=== PATIENT | male | born 1945 ===

== ENCOUNTER → 2024-03-22 11:42 | Outpatient (REF) | payer MEDICARE, OTHER, SELFPAY | LOC: RAD 11:42 | PROVIDERS: ATTENDING PHYSICIAN Urology; FAMILY PHYSICIAN Nurse Practitioner Family | DX: C67.9 Malignant neoplasm of bladder, unspecified (principal) | CPT/HCPCS: 74176 ==

== ENCOUNTER 2024-07-22 06:07 | Inpatient (IN) | payer MEDICARE, OTHER, SELFPAY ==
[2024-07-21 20:54] VITALS: BP 138/90
[2024-07-21 21:23] LABS: % Basophils 0.3 % (0-2); % Immature Granulocytes 0.5 % (0-0.5); % Lymphocytes 6.7 % (20.5-51.1); % Monocytes 3.9 % (1.7-9.3); % Neutrophils 88.6 % (42.2-75.2); Absolute Basophils 0.1 10^3/uL (0-0.2); Absolute Immature Granulocytes 0.1 10^3/uL (0-0.05); Absolute Monocytes 0.6 10^3/uL (0.1-0.6); Absolute Neutrophils 13.8 10^3/uL (1.4-6.5); Hematocrit 37.4 % (39.0-52.0); Hemoglobin 12.4 g/dL (13.0-18.0); Mean Corp Hgb Conc. 33.2 g/dL (33.0-37.0); Mean Corpuscular Hgb 25.3 pg (27.0-31.0); Mean Corpuscular Volume 76.3 fL (80.0-94.0); Nucleated Red Blood Cells % 0 % (-); Platelet Count 210 10^3/uL (130-400); Red Cell Dist. Width 14.8 % (11.5-14.5); White Blood Cell Count 15.5 10^3/uL (4.8-10.8)
[2024-07-21 21:38] LABS: ALT (SGPT) 19 U/L (0-50); AST (SGOT) 29 U/L (17-59); Albumin 4.6 g/dl (3.5-5.0); Alkaline Phosphatase 83 U/L (38-126); Blood Urea Nitrogen 42 mg/dl (9-20); Calcium 9.8 mg/dl (8.4-10.2); Carbon Dioxide 19 mmol/L (22-30); Chloride 105 mmol/L (98-107); Glucose 286 mg/dl (70-99); Lipase 116 U/L (23-300); Potassium 5.4 mmol/L (3.5-5.1); Sodium 139 mmol/L (135-145); Total Bilirubin 0.6 mg/dl (0.2-1.3); Total Protein 7.1 g/dl (6.3-8.2); eGFR 26.78
[2024-07-21 22:43] VITALS: BP 185/88
[2024-07-22] VITALS (8 sets, daily range): BP systolic 118–180; BP diastolic 43–83; PULSE 68–76; O2SAT 96–98; BMI 26.8
[2024-07-22 01:22] LABS: Urine Albumin 1+ (Neg - Trace); Urine Bilirubin Negative (Negative); Urine Character Slightly Cloudy (Clear); Urine Color Yellow; Urine Glucose 3+ (Negative); Urine Ketone Negative (Negative); Urine Leukocyte 2+ (Negative); Urine Nitrite Negative (Negative); Urine Occult Blood 4+ (Negative); Urine Specific Gravity 1.025 (<1.030); Urine Urobilinogen Negative (Neg - 1+)
[2024-07-22 01:32] LABS: Urine Bacteria Moderate (Negative); Urine Red Blood Cell >100 /HPF (0-2); Urine Uric Acid Crystals Seen; Urine White Cell 50-60 /HPF (0-5)
--- NOTE | 2024-07-22 01:57 | ED.GENMED ---
History of Present Illness
General
Chief Complaint: Flank Pain
Source: patient
Exam Limitations: none
Time Seen by Provider: 07/22/24 01:40
Nursing documentation reviewed up to this point in time: agreed with
History of Present Illness
History of Present Illness:
Patient is a 78-year-old male with past medical history of urethral stone requiring stent lithotripsy(01/2023), dementia bladder cancer pneumonia hypertension hyper lipidemia, IDDM presents to the ER complaining right flank pain. Daughter at bedside
patient patient does have a history of dementia he is presently being treated for prostate cancer by Dr. Cabral he does receive Lupron IM every 6 months. He started with right flank pain several days ago and has not been eating. She also reports
his blood sugar has been elevated and he has been urinating more frequently.
Past History
Past History
ED Past Medical History: Cancer (Bladder and prostate), HTN, Hypercholesterolemia, IDDM, Renal failure (Renal insufficiency, kidney stones) and Other (Bladder cancer, prostate cancer, renal insufficiency, congenital nystagmus, mild dementia,
neuropathy, ambulates with a cane)
ED Past Surgical History: Tonsilectomy and Urological
Social History
Tobacco: Non-smoker
Alcohol: None
Drug: None
Personal:
Living: with family
Employment: Retired
Family History
Family History: Other (Noncontributory)
Review of Systems
Review of Systems
Allergies reviewed?: Yes
All Other Systems: ROS reviewed and negative except as documented in HPI and ROS
Constitutional: Reports no symptoms; Denies fever, fatigue or chills
Respiratory: Reports no symptoms
Cardiac: Reports no symptoms
ABD/GI: Reports no symptoms
: Reports frequency and flank pain
Musculoskeletal: Reports back pain (right flank pain )
Skin: Reports no symptoms
Neurological: Reports no symptoms
Psychiatric: Reports no symptoms
Phy Exam
General Physical Exam
General Presentation: no apparent distress
General age: appears stated age
General Skin: warm and dry
General Habitus: normal
General Mental: alert
General Hydration: appears well hydrated
Cardiovascular Exam
Cardiovascular Exam: regular rate/rhythm, no murmur and normal peripheral pulses
Pulmonary Exam
Pulmonary Exam: lungs clear and no respiratory distress
Gastrointestinal Exam
Gastrointestinal Exam: non tender and soft
Neurological Exam
Neurological Exam: alert
Musculoskeletal Exam
Musculoskeletal Exam: full ROM
Skin Exam
Skin Exam: normal color and warm/dry
Psychiatric Exam
Psychiatric Exam: normal mood/affect
Course
Orders/Labs/Results
Orders:
Orders
07/21/24 20:58
Urinalysis Urgent
Date Specimen was Collected: 07/21/24
Time Specimen was Collected: 20:59
07/21/24 21:08
Complete Blood Count/With Diff Urgent
Comprehensive Metabolic Panel Urgent
Lipase Urgent
07/22/24 01:10
Urine Microscopic Urgent
Date Specimen was Collected: 07/21/24
Time Specimen was Collected: 20:59
07/22/24 02:08
CT Abd/pel Without Iv Or Oral Urgent
Comment:
Reason For Exam: right flank pain
0.9% Sodium Chloride 1000 ml [Nss] 1,000 ml IV BOLUS
CefTRIAXone [Rocephin] 1,000 mg IV NOW STA
Morphine Sulfate 2 mg IV NOW STA
07/22/24 02:27
Ondansetron Injectable [Zofran] 4 mg .ROUTE .STK-MED ONE
07/22/24 02:30
Ondansetron Injectable [Zofran] 4 mg IV NOW STA
Abnormal Lab Results
07/21/24 07/22/24
21:08 01:10
WBC 15.5 H 10^3/uL
(4.8-10.8)
Hgb 12.4 L g/dL
(13.0-18.0)
Hct 37.4 L %
(39.0-52.0)
MCV 76.3 L fL
(80.0-94.0)
MCH 25.3 L pg
(27.0-31.0)
RDW 14.8 H %
(11.5-14.5)
Abs Immat Gran (auto) 0.1 H 10^3/uL
(0-0.05)
Absolute Neuts (auto) 13.8 H 10^3/uL
(1.4-6.5)
Absolute Lymphs (auto) 1.0 L 10^3/uL
(1.2-3.4)
Neutrophils % 88.6 H %
(42.2-75.2)
Lymphocytes % 6.7 L %
(20.5-51.1)
Potassium 5.4 H mmol/L
(3.5-5.1)
Carbon Dioxide 19 L mmol/L
(22-30)
BUN 42 H mg/dl
(9-20)
Creatinine 2.4 H mg/dL
(0.7-1.3)
Glucose 286 H mg/dl
(70-99)
Urine Occult Blood 4+ A
(Negative)
Ur Leukocyte Esterase 2+ A
(Negative)
Urine RBC >100 A /HPF
(0-2)
Urine WBC 50-60 A /HPF
(0-5)
Urine Bacteria Moderate A
(Negative)
Urine Glucose 3+ A
(Negative)
Urine Albumin 1+ A
(Neg - Trace)
07/21/24 21:08
07/21/24 21:08
Vital Signs
Initial and Last Documented VS:
Initial Vital Signs
Temp Pulse Resp BP Pulse Ox
98.2 F 80 22 138/90 98
07/21/24 20:54 07/21/24 20:54 07/21/24 20:54 07/21/24 20:54 07/21/24 20:54
Last Documented Vital Signs
Temp Pulse Resp BP Pulse Ox
98.2 F 82 16 172/77 96
07/21/24 20:54 07/22/24 03:00 07/22/24 03:00 07/22/24 03:00 07/22/24 03:00
Manager Pricing consulted with Physician
Manager Pricing consulted with physician?: Yes
Name of Physician Consulted: Cathi
MDM/Problems Addressed
Differential Diagnosis Includes:
Not limited to pyelonephritis UTI renal colic
MDM/Problems Addressed:
Patient is a 78-year-old male with history of chronic kidney disease prostate cancer renal stones in the past with stent presents today with right flank pain. Patient denies any fever chills his white count is minimally elevated his urine does
appear infected and he does have 5 mm stone within the distal right ureter with mild hydronephrosis. Patient does have chronic kidney disease and is followed by Dr. Zuluaga and DR Cabral for prostate cancer.
With infection and stone case reviewed with ED physician IV antibiotics ordered will admit. Admitting hospitalist and urology made aware via Slater text
Chronic conditions affecting care:
iddm hx of renal stones , hx of CKD
*Radiology
Radiology exam reviewed: radiology read reviewed
*Pulse Oximetry
Patient hypoxic: no
*Critical Care Note
Total Time (30-74mins, 75-104mins- exclusive of procedures): Not Applicable
Patient Management
Discussion with other providers: [employer] (urology made aware via tiger text )
ED Attending Note
-
Portions of this chart may have been created with voice recognition software.� Occasional wrong word or��sound alike� substitutions may have occurred due to the inherent limitations of voice recognition software.
Discharge Plan
Departure
Patient Disposition: Admit
Date of Disposition: 07/22/24
Time of Disposition: 03:44
Admit to doctor: hospitalist
Presentation/result/management discussed w/ accepting MD/DO: Hospitalist
Patient with high blood pressure during this ER visit?: Yes
Condition: Fair
Covid-19: Not Applicable
Discharge Problem:
Kidney stones, Acute UTI
Prescriptions:
No Action
donepezil 10 MG tablet
10 mg PO DAILY@1200
simvastatin 40 MG tablet
40 mg PO DAILY@1200
Levemir FlexTouch U100 Insulin 300 UNIT/3 ML insulin pen
40 unit SC DAILY@1200
sertraline 100 MG tablet
150 mg PO DAILY@1200
insulin aspart U-100 [Novolog FlexPen U-100 Insulin] 300 UNITS/3 ML insulin pen
0 - 7 units SC DAILY@1200
metformin 500 mg tablet
1,000 mg PO BID
amlodipine 5 mg tablet
2.5 mg PO DAILY@1200
Lupron Depot (6 Month)
45 mg IM Q6M
potassium citrate
2 tab PO DAILY
Referrals:
Dillan Santillan I., [Family Provider] -
Interventions
Interventions:
*Risk Screen - Suicide Last Done: 07/21/24 20:54
*General Assessment Last Done: 07/22/24 01:59
*Neglect/Abuse Screening Last Done: 07/21/24 20:54
*ED COVID-19 Vaccine History Last Done: 07/22/24 01:59
XF-Xoqagi-Vzntufvdew Assessment Last Done: 07/22/24 01:59
ED-Male Genitourinary Assessment Last Done: 07/22/24 01:59
Discharge Date and Time
Print Language: YAKUT
[2024-07-22] MEDS: ROCEPHIN 1000 MG IV ×2 (02:22→22:09)
[2024-07-22] MEDS: MORPHINE SULFATE 2 MG IV (02:23)
[2024-07-22] MEDS: NSS 1000 IV ×3 (02:23→18:15)
[2024-07-22] MEDS: ZOFRAN 4 MG IV (02:30)
--- NOTE | 2024-07-22 06:03 | HPS.HSE ---
Family Physician
-
Family Physician: Dillan Santillan
Chief Complaint
-
R Flank Pain
History of Present Illness
Patient is a 78y M with PMH significant for dementia, kidney stones and bladder cancer / prostate cancer who presents to ED complaining of R flank pain x several days. Family reported that patient began to complain of R flank pain about 2-3 days
ago. He has had poor appetite and family notes his sugars have been running high and he has had frequent urination.
No fevers / chills. No N/V/D. No other current complaints or concerns.
Patient is followed by Dr. Cabral for bladder cancer and prostate cancer.
Medical History
Past Medical History
Past Medical History: Reports Other
Additional Past Medical History:
Hypertension
DM-II
CKD III
Senile Dementia
Bladder Cancer
Prostate Cancer
Nephrolithiasis
Past Surgical History: Reports Other
Additional Past Surgical History:
Prostatectomy
Ureteral Stent Placement
TURBT
Social History
Tobacco: Non-smoker
Alcohol: None
Drug: None
Living: With Family
Family History
Family History: Not pertinent
Allergies / Home Medications
Allergies reflects when Allergies were last updated in [facility].
Home Medications with original date entered in [facility]
Allergy/Medication List:
Allergies
Allergy/AdvReac Type Severity Reaction Status Date / Time
No Known Allergies Allergy Verified 07/21/24 20:58
Home Medications
donepezil 10 mg tablet 10 mg PO DAILY@1200 memory 05/02/22
insulin aspart U-100 100 unit/mL (3 mL) subcutaneous pen (Novolog FlexPen U-100 Insulin aspart) 0 - 7 units SC DAILY@1200 Diabetes 05/02/22
insulin detemir U-100 100 unit/mL (3 mL) subcutaneous pen (Levemir FlexTouch U-100 Insulin) 40 unit SC DAILY@1200 Diabetes 05/02/22
sertraline 100 mg tablet 150 mg PO DAILY@1200 Depression 05/02/22
simvastatin 40 mg tablet 40 mg PO DAILY@1200 High cholesterol 05/02/22
amlodipine 5 mg tablet 2.5 mg PO DAILY@1200 Blood pressure 12/30/22
metformin 500 mg tablet 1,000 mg PO BID Diabetes 12/30/22
Lupron Depot (6 Month) 45 mg IM Q6M 05/25/23
potassium citrate 2 tab PO DAILY 05/25/23
Review of Systems
-
History Source: Patient
A 12 point ROS was completed and negative except as noted: Yes
Constitutional: Denies Fever or Chills
Respiratory: Denies Cough or Trouble Breathing
Cardiac: Denies Chest Pain or Palpitations
Abdomen/GI: Reports Anorexia; Denies Abdominal Pain, Nausea, Vomiting or Diarrhea
: Reports Frequency and Flank Pain; Denies Dysuria, Urgency or Bleeding
Musculoskeletal: Denies Edema
Neurological: Denies Dizzy or Headache
Psych: Reports Dementia
Physical Exam
Vital Signs
Vital Signs
Temp Pulse Resp BP Pulse Ox
98.2 F 82 16 172/77 96
07/21/24 20:54 07/22/24 03:00 07/22/24 03:00 07/22/24 03:00 07/22/24 03:00
Physical Exam
General: Other (78y M in no acute distress. Pleasantly confused.)
HEENT: Moist mucous membranes and PERRLA
Respiratory: Clear; No Wheezes, Rales or Rhonchi
Cardiac: S1/S2 and Regular Rhythm; No Murmur
GI: Soft, Non Distended, Normal Bowel Sounds and Other (Mild RUQ tenderness.)
Genito-urinary: Other (Pos R CVAT.)
Musculoskeletal: No Clubbing, No Cyanosis and No Edema
Neuro: Awake and Alert
Psych: Apparent Dementia
Laboratory Results
-
07/21/24 21:08
07/21/24 21:08
Laboratory Results
Total Bilirubin 0.6 mg/dl (0.2-1.3) 07/21/24 21:08
AST 29 U/L (17-59) 07/21/24 21:08
ALT 19 U/L (0-50) 07/21/24 21:08
Alkaline Phosphatase 83 U/L (38-126) 07/21/24 21:08
Lipase 116 U/L (23-300) 07/21/24 21:08
Impression/Plan
-
A/P: Patient is a 78y M with PMH significant for HTN, DM-II and dementia who presents to ED complaining of several days of R flank pain.
Right Ureterolithiasis
DEJAH on CKD III secondary to the above
- Admit for further evaluation and treatment.
- Patient with R flank pain and CT showing 5mm distal R ureteral stone.
- IVFs, pain control, tamsulosin.
- Urology consulted for possible cysto / stent.
- Empiric ceftriaxone for now.
- Follow for clinical improvement.
- SCr = 2.4 compared to baseline of 1.7.
- Follow for return to baseline renal function with IVFs / removal of ureteral stone.
Benign Hypertension
- Stable. Continue outpatient med regimen with holding parameters.
DM-II
- Stable. Continue basal insulin at 1/2 dose while NPO.
- Follow glucose and cover with SSI as needed.
- Update A1C.
Senile Dementia
- Stable. Continue Aricept.
History of Bladder Cancer
History of Prostate Cancer
- Followed by Dr. Cabral.
- Currently on Lupron q 6 months.
DVT Prophylaxis: SCDs
Code Status: Full
[2024-07-22 08:06] LABS: Glucose - Point of Care 248 mg/dl (70-99)
--- NOTE | 2024-07-22 08:52 | CONS.URO ---
Medical History
History of Present Illness
78 yo male admitted to hospitalists: 'R flank pain about 2-3 days ago. He has had poor appetite and family notes his sugars have been running high and he has had frequent urination.
No fevers / chills. No N/V/D.'
Asked to see patient for urinary retention.
02/24/[address] Cabral:
�������Had previously seen Dr. Chicas for bladder cancer, treated last several years ago
�������He was treated with likely chemoradiation at some point for bladder cancer, but patient and family are unsure about what his treatment course or stage was
�������Unsure about follow up cystoscopy appointments but they think he had Q3 month appts
�������At one point stopped going to his appointments because of dementia
�������-
�������On follow up with Dr. Chicas he was found to have elevated PSA and prostate nodule 10/2020
�������MRI 11/10/20 subsequently showed 2 PIRADS 5 lesions concerning for prostate cancer with extracapsular extension,
�������
�������He had a prostate biopsy revealing cancer
������
�������---
�������04/13/21
�������Negative surveillance cystoscopy
�������6 month lupron given
������
�������---
�������04/20/22
������
�������Testosterone is therapeutic low <10 and PSA 0.13
������
�������---
�������05/12/22
�������Uncomplicated ureteroscopy and laser lithotripsy
�������
�������--
�������01/2023
�������New symptomatic 7mm R ureteral stone found on CT, ureteroscopy completed without complication and stent removed
�������---
�������05/03/23
�������Started on Urocit K for uric acid stones
�������PSA <0.1
�������Lupron stopped to initiate intermittent ADT
�������---
�������10/2023
�������PSA <0.1 07/2023
�������No issues since last visit
�������---
�������03/13/24
�������No new issues or sx
�������labs and CT not completed.
Past Medical History
Past Medical History: Other (Hypertension DM-II CKD III Senile Dementia Bladder Cancer Prostate Cancer Nephrolithiasis)
Past Surgical History: Other (Prostatectomy, Ureteroscopies, TURBTs)
Allergies/Home Medications
Allergies
Allergy/AdvReac Type Severity Reaction Status Date / Time
No Known Allergies Allergy Verified 07/21/24 20:58
Home Medications
�Medication �Instructions �Recorded �Confirmed �Type
donepezil 10 mg tablet 10 mg PO DAILY@1200 memory 05/02/22 07/22/24 History
insulin aspart U-100 100 unit/mL 0 - 7 units SC DAILY@1200 Diabetes 05/02/22 07/22/24 History
(3 mL) subcutaneous pen (Novolog
FlexPen U-100 Insulin aspart)
insulin detemir U-100 100 unit/mL 40 unit SC DAILY@1200 Diabetes 05/02/22 07/22/24 History
(3 mL) subcutaneous pen (Levemir
FlexTouch U-100 Insulin)
sertraline 100 mg tablet 150 mg PO DAILY@1200 Depression 05/02/22 07/22/24 History
simvastatin 40 mg tablet 40 mg PO DAILY@1200 High 05/02/22 07/22/24 History
cholesterol
amlodipine 5 mg tablet 2.5 mg PO DAILY@1200 Blood pressure 12/30/22 07/22/24 History
metformin 500 mg tablet 1,000 mg PO BID Diabetes 12/30/22 07/22/24 History
Lupron Depot (6 Month) 45 mg IM Q6M 05/25/23 07/22/24 History
potassium citrate 2 tab PO DAILY 05/25/23 07/22/24 History
Physical Exam
Vital Signs
Vital Signs
Temp Pulse Resp BP Pulse Ox
98.4 F 66 17 166/72 96
07/22/24 07:56 07/22/24 07:56 07/22/24 07:56 07/22/24 07:56 07/22/24 07:56
Lab / Testing Results
Laboratory Results
07/21/24 21:08
07/21/24 21:08
Assessment / Plan
-
5 mm right ureteral stone noted on 02/2024 CT now has migrated to lower right ureter
he is hemodynamically stable and afebrile
aside from mild serum WBC elevation, no SIRS criteria [lactic acid not done]
pain is well-managed
given size and position and composition of stone, spontaneous passage is likely
urine ph of 5.0 indicates that urine has not yet been adequately alkalinized
he and female friend are amenable to outpatient trial of passage
Rec:
Tamsulosin
Potassium citrate 30 meq bid with meals
strain urine
empiric abx AND f/u or urine culture by admitting team
if signs of HD instability develop, or systemic fevers, or pain recurs and proves to be intractable, the surgical intervention would be advised
Bladder cancer
- Unknown stage and grade, likely underwent primary chemoradiation, unknown treatment course, unknown course of surveillance which sounds like it stopped around 2017
- Cystoscopy during stone episode 04/2022 and 01/2023 and showed no evidence of recurrence
==
Prostate cancer
- Elevated PSA of 5.4 in late 2019, s/p prostate biopsy showing unfavorable intermediate risk prostate cancer with [place] 4+3 disease in 06/07 cores
- MRI 10/2020 showing 2 PIRADS 5 lesions with extracapsular extension
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
- So far disease appears to be very well controlled with minimal ADT side effects
==
Nephrolithiasis
- Symptomatic 7mm R ureteral stone found on CT 12/2022, s/p R ureteroscopy for removal
- 90% uric acid on stone analysis both episodes
Data Reviewed
-
CT Scan: Image personally visualized and interpreted (5 mm stone at junction of lower and middle thirds of ureter with some proximal dilatation)
[2024-07-22] MEDS: NOVOLOG FLEXPEN-LOW RESISTANCE 2 UNITS SC ×2 (09:45→23:59)
[2024-07-22] MEDS: FLOMAX 0.4 MG PO (09:46)
--- NOTE | 2024-07-22 09:53 | W.PN.HOSP.TC ---
Addendum entered and electronically signed by Nella Sosa MD 07/22/24 10:15:
*potassium citrate held for K+ 5.4 - will resume based on lab values today
Original Note:
Today's Communication/Plan
-
see plan
Assessment / Plan
Assessment / Plan
A/P: Patient is a 78y M with PMH significant for HTN, DM-II and dementia who presents to ED complaining of several days of R flank pain.
CT A/P
IMPRESSION:
1. 5 mm stone within the distal right ureter at the level of the upper sacrum, associated with mild right hydronephrosis and mild right hydroureter.
2. Cholelithiasis without evidence of acute cholecystitis.
3. Colonic diverticulosis without evidence of diverticulitis.
Right Ureterolithiasis
DEJAH on CKD III secondary to the above
- Admit for further evaluation and treatment.
- Patient with R flank pain and CT showing 5mm distal R ureteral stone.
- IVFs, pain control, tamsulosin.
- Urology consult appreciated
- Empiric ceftriaxone, follow up culture
- SCr = 2.4 compared to baseline of 1.7.
- appreciate Urology - spontaneous passage likely but with UTI and DEJAH would like to keep another night
- continue BID potassium citrate, strain urine
- will order diet
Benign Hypertension
- Stable. Continue outpatient med regimen with holding parameters.
DM-II
- Stable. Continue basal insulin at 1/2 dose
- Follow glucose and cover with SSI as needed.
- Update A1C.
Senile Dementia
- Stable. Continue Aricept.
History of Bladder Cancer
History of Prostate Cancer
- Followed by Dr. Cabral.
- Currently on Lupron q 6 months.
DVT Prophylaxis: SCDs
Code Status: Full
Anticipated Discharge: 24 - 48 hours
Subjective/Interval History
-
Date of Service: July 22, 2024
no significant pain
no new complaints
feels hungry
Objective Data
-
Vital Signs:
Vital Signs
Temp Pulse Resp BP Pulse Ox
98.4 F 66 17 166/72 96
07/22/24 07:56 07/22/24 07:56 07/22/24 07:56 07/22/24 07:56 07/22/24 07:56
Review of Systems
-
History Source: Patient
All other systems: Reviewed and negative
Physical Exam
-
General: Well Developed
HEENT: Normocephalic
Respiratory: Clear to Auscultation
Cardiac: Regular Rhythm
GI: Soft
Musculoskeletal: No Edema
Skin: Warm and Dry; Negative Rash
Neuro: Awake and Alert
Psych: Calm
Data Reviewed
-
Diagnostic Radiology: Report Reviewed by me
Labs: Labs Reviewed by me
[2024-07-22 10:43] LABS: % Basophils 0.3 % (0-2); % Eosinophils 0.2 % (0-6); % Immature Granulocytes 0.5 % (0-0.5); % Lymphocytes 8.8 % (20.5-51.1); % Monocytes 6.8 % (1.7-9.3); % Neutrophils 83.4 % (42.2-75.2); Absolute Immature Granulocytes 0.1 10^3/uL (0-0.05); Absolute Lymphocytes 1.1 10^3/uL (1.2-3.4); Absolute Monocytes 0.9 10^3/uL (0.1-0.6); Absolute Neutrophils 10.5 10^3/uL (1.4-6.5); Hematocrit 36.1 % (39.0-52.0); Hemoglobin 11.6 g/dL (13.0-18.0); Mean Corp Hgb Conc. 32.1 g/dL (33.0-37.0); Mean Corpuscular Volume 77.8 fL (80.0-94.0); Nucleated Red Blood Cells % 0 % (-); Platelet Count 181 10^3/uL (130-400); Red Blood Cell Count 4.64 10^6/uL (4.70-6.10); Red Cell Dist. Width 14.9 % (11.5-14.5); White Blood Cell Count 12.6 10^3/uL (4.8-10.8)
--- NOTE | 2024-07-22 11:07 | W.PN.UPDATE ---
Update Note
Progress Note Update
pt has been posted for OR for Monday 07/23 for ureteroscopy/stone removal/stenting if indicated
NPO order entered
on running Rocephin
[2024-07-22 11:19] LABS: Blood Urea Nitrogen 42 mg/dl (9-20); Calcium 8.7 mg/dl (8.4-10.2); Carbon Dioxide 22 mmol/L (22-30); Chloride 105 mmol/L (98-107); Estimated Creatinine Clearance 17 ml/min; Glucose 262 mg/dl (70-99); Potassium 4.7 mmol/L (3.5-5.1); Sodium 140 mmol/L (135-145); eGFR 23.25
[2024-07-22 12:15] LABS: Glucose - Point of Care 257 mg/dl (70-99)
[2024-07-22] MEDS: NOVOLOG FLEXPEN-LOW RESISTANCE 3 UNITS SC (13:40)
[2024-07-22] MEDS: LANTUS 0.3 UNITS SC (13:40)
[2024-07-22] MEDS: ZOLOFT 150 MG PO (13:41)
[2024-07-22] MEDS: NORVASC 2.5 MG PO (13:42)
[2024-07-22] MEDS: LIPITOR 20 MG PO (13:42)
[2024-07-22] MEDS: ARICEPT 10 MG PO (13:42)
--- NOTE | 2024-07-22 16:14 | CM ---
Patient seen at bedside.
Daughter Sarah in room.
Dx: Ureterolithiasis, DEJAH
PMH: HTN, DMII, bladder ca, prostate ca.
Patient lives in the finished basement with daughter with a Bedroom & Bath.
PLOF: Independent uses cane
Known to [facility] in the past.
PT recommends home health
Referral placed in care port for [facility]
PCP: Dillan Santillan
Pharmacy: [facility]
PLAN: Discharge with home PT.
[2024-07-22 17:50] LABS: Glucose - Point of Care 354 mg/dl (70-99)
[2024-07-22] MEDS: NOVOLOG FLEXPEN-LOW RESISTANCE 5 UNITS SC (18:13)
[2024-07-22 21:31] LABS: Glucose - Point of Care 260 mg/dl (70-99)
[2024-07-22] MEDS: STERILE WATER FOR INJECTION 10 ML IV (22:09)
[2024-07-22 23:59] LABS: Glucose - Point of Care 233 mg/dl (70-99)
[2024-07-23] VITALS (14 sets, daily range): BP systolic 108–156; BP diastolic 49–75; PULSE 84
[2024-07-23] MEDS: NSS 1000 IV (03:34)
[2024-07-23 05:56] LABS: Glucose - Point of Care 218 mg/dl (70-99)
[2024-07-23] MEDS: NOVOLOG FLEXPEN-LOW RESISTANCE 2 UNITS SC (06:04)
[2024-07-23 07:08] LABS: Hematocrit 32.3 % (39.0-52.0); Hemoglobin 10.3 g/dL (13.0-18.0); Mean Corp Hgb Conc. 31.9 g/dL (33.0-37.0); Mean Corpuscular Hgb 25.1 pg (27.0-31.0); Mean Corpuscular Volume 78.8 fL (80.0-94.0); Mean Platelet Volume 9.8 fL (7.4-10.4); Platelet Count 169 10^3/uL (130-400); Red Cell Dist. Width 14.9 % (11.5-14.5); White Blood Cell Count 8.8 10^3/uL (4.8-10.8)
[2024-07-23 07:19] LABS: Blood Urea Nitrogen 42 mg/dl (9-20); Calcium 8.2 mg/dl (8.4-10.2); Carbon Dioxide 21 mmol/L (22-30); Chloride 107 mmol/L (98-107); Estimated Creatinine Clearance 16 ml/min; Glucose 160 mg/dl (70-99); Potassium 4.3 mmol/L (3.5-5.1); Sodium 140 mmol/L (135-145); eGFR 21.34
[2024-07-23] MEDS: FLOMAX 0.4 MG PO (08:35)
[2024-07-23 08:45] LABS: Glycohemoglobin (HgbA1c) 9.2 % (4.0-5.6)
--- NOTE | 2024-07-23 10:39 | W.PN.HOSP.TC ---
Today's Communication/Plan
-
NPO for OR today
IVF
monitor renal function closely
Assessment / Plan
Assessment / Plan
A/P: Patient is a 78y M with PMH significant for HTN, DM-II and dementia who presents to ED complaining of several days of R flank pain.
CT A/P
IMPRESSION:
1. 5 mm stone within the distal right ureter at the level of the upper sacrum, associated with mild right hydronephrosis and mild right hydroureter.
2. Cholelithiasis without evidence of acute cholecystitis.
3. Colonic diverticulosis without evidence of diverticulitis.
Right Ureterolithiasis
DEJAH on CKD III secondary to the above
- Patient with R flank pain and CT showing 5mm distal R ureteral stone.
- IVFs, pain control, tamsulosin.
- Urology consult appreciated, plan is for ureteroscopy/stone removal/stenting if needed today
- Empiric ceftriaxone, follow up culture
- creatinine rising in setting of obstruction
- holding K citrate with rising creatinine
- NPO for procedure
Benign Hypertension
- Stable. Continue outpatient med regimen with holding parameters.
DM-II
- Stable. Continue basal insulin at 1/2 dose
- Follow glucose and cover with SSI as needed.
- Update A1C.
Senile Dementia
- Stable. Continue Aricept.
History of Bladder Cancer
History of Prostate Cancer
- Followed by Dr. Cabral.
- Currently on Lupron q 6 months.
DVT Prophylaxis: SCDs
Code Status: Full
Anticipated Discharge: 24 - 48 hours
Subjective/Interval History
-
Date of Service: July 23, [address] to procedure
denies chest pain or shortness of breath
no LE swelling
Objective Data
-
Labs:
Laboratory Results
07/23/24
06:30
WBC 8.8
Hgb 10.3 L
Hct 32.3 L
Plt Count 169
Sodium 140
Potassium 4.3
Chloride 107
Carbon Dioxide 21 L
BUN 42 H
Creatinine 2.9 H
Glucose 160 H
Calcium 8.2 L
Vital Signs:
Vital Signs
Temp Pulse Resp BP Pulse Ox
98.1 F 65 20 115/41 95
07/23/24 07:00 07/23/24 07:00 07/23/24 07:00 07/23/24 07:00 07/23/24 07:00
I&O
07/22/24 07/23/24 07/24/24
06:59 06:59 06:59
Intake Total 2960 / 2960
Output Total 1425 / 1425
Balance 1535 / 1535
Review of Systems
-
History Source: Patient
All other systems: Reviewed and negative
Physical Exam
-
General: Well Developed
HEENT: Normocephalic
Respiratory: Clear to Auscultation
Cardiac: Regular Rhythm
GI: Soft
Musculoskeletal: No Edema
Skin: Warm and Dry; Negative Rash
Neuro: Awake and Alert
Psych: Calm
Data Reviewed
-
Diagnostic Radiology: Report Reviewed by me
Labs: Labs Reviewed by me
[2024-07-23 11:48] LABS: Glucose - Point of Care 153 mg/dl (70-99)
--- NOTE | 2024-07-23 11:48 | CM ---
Patient going to OR this am for urological procedure.
Lives with daughter, JUNIOR to continue to follow.
Referral placed in care port for [facility] for home PT as recommended.
PLAN: Discharge to home with [facility]
--- NOTE | 2024-07-23 12:06 | VNURNOTE ---
Home Health Liaison spoke with patient's daughter Sarah to discuss [facility] nurse/therapy, visits, schedule and homebound status. Patient has had us in the past. Daughter is agreeable and understands that visits at home will be 2-3 x per week to
assess and teach medical management. She is aware that [facility] will contact them for start of care within a few days after discharge from .
[facility] referral in Care Port.
--- NOTE | 2024-07-23 12:45 | W.IMMPOSTOP ---
Surgical Immed Post Op Note
-
Primary Surgeon: Peffer
Assisting Surgeon: none
Pre-op Diagnosis: R ureteral stone
Post-op Diagnosis: same
Procedure Performed: R ureteroscopy, laser lithotripsy, stent placement
Anesthesia Type: gen
Specimen / Cultures: stone
Estimated Blood Loss: none
Complications: none
Operative Findings: Stone removed, stent in position
--- NOTE | 2024-07-23 12:46 | W.PN.URO.CBU ---
Today's Communication / Plan
-
Trend DEJAH
Outpatient follow up for stent removal
Assessment / Plan
-
78M w R flank pain and DEJAH from R ureteral stone
s/p OR 07/23/24 for R ureteroscopy, laser lithotripsy, ureteral stent placement
- Trend DEJAH s/p resolution of obstruction
- Okay to discontinue antibiotics - urine culture with low colony count of contaminant bacteria
- Follow up in about 2 weeks for office cystoscopy and stent removal
- Office will call to schedule
Diagnosis
-
Date of Service: July 23, 2024
-
Patient Diagnosis:
R ureteral stone
DEJAH
Post Op Day:
Objective
-
Vital Signs
Temp Pulse Resp BP Pulse Ox
98.1 F 65 20 154/70 95
07/23/24 07:00 07/23/24 07:00 07/23/24 07:00 07/23/24 07:00 07/23/24 07:00
Intake and Output
07/22/24 07/23/24 07/24/24
06:59 06:59 06:59
Intake Total 2960 / 2960
Output Total 1425 / 1425
Balance 1535 / 1535
Intake:
Oral fluids 660 / 660
IV fluids (Total) 2300 / 2300
Output:
Urine, Voided 1425 / 1425
Laboratory Results
07/23/24 06:30
07/23/24 06:30
Physical Exam
-
General - well developed, well nourished, no acute distress
Chest - clear bilaterally
Abdomen - soft, non-tender, positive bowel sounds, no CVAT, no incisional pain or distention
Genitalia - normal
Rectal - normal
Skin - warm & dry with no rash
Neuro - AOx3, no motor deficits
Extremities - no clubbing, no cyanosis, no edema
Incision - clean, dry
Dressing - clean, dry, intact
[2024-07-23] MEDS: NOVOLOG FLEXPEN-LOW RESISTANCE SC ×2 (13:00→19:27)
[2024-07-23 13:14] LABS: Glucose - Point of Care 151 mg/dl (70-99)
[2024-07-23] MEDS: Pyridium 200 MG PO (13:25)
[2024-07-23] MEDS: LIPITOR PO (13:56)
[2024-07-23 14:19] LABS: Glucose - Point of Care 192 mg/dl (70-99)
[2024-07-23] MEDS: TYLENOL 650 MG PO (14:22)
[2024-07-23] MEDS: LANTUS 0.3 UNITS SC (16:40)
[2024-07-23] MEDS: NORVASC 2.5 MG PO (16:41)
[2024-07-23] MEDS: ARICEPT 10 MG PO (16:41)
[2024-07-23] MEDS: ZOLOFT 150 MG PO (16:42)
[2024-07-23 18:08] LABS: Glucose - Point of Care 518 mg/dl (70-99)
[2024-07-23 19:00] LABS: Glucose 558 mg/dl (70-99)
[2024-07-23] MEDS: NOVOLOG FLEXPEN 8 UNITS SC (19:27)
[2024-07-23 21:34] LABS: Glucose - Point of Care 569 mg/dl (70-99)
[2024-07-23] MEDS: STERILE WATER FOR INJECTION IV (21:58)
[2024-07-23 22:46] LABS: Glucose 545 mg/dl (70-99)
[2024-07-23] MEDS: NOVOLOG FLEXPEN 12 UNITS SC (23:16)
[2024-07-23 23:46] LABS: Blood Urea Nitrogen 54 mg/dl (9-20); Calcium 8.1 mg/dl (8.4-10.2); Carbon Dioxide 18 mmol/L (22-30); Chloride 101 mmol/L (98-107); Estimated Creatinine Clearance 15 ml/min; Glucose 503 mg/dl (70-99); Potassium 4.6 mmol/L (3.5-5.1); Sodium 132 mmol/L (135-145); eGFR 20.49
[2024-07-24 01:35] LABS: Glucose - Point of Care 328 mg/dl (70-99)
[2024-07-24] MEDS: NOVOLOG FLEXPEN 4 UNITS SC (02:04)
[2024-07-24] MEDS: NSS 1000 IV ×2 (02:05→15:23)
[2024-07-24 07:00] LABS: % Basophils 0.2 % (0-2); % Eosinophils 0.1 % (0-6); % Immature Granulocytes 0.5 % (0-0.5); % Lymphocytes 7.9 % (20.5-51.1); % Monocytes 6.3 % (1.7-9.3); Absolute Immature Granulocytes 0.1 10^3/uL (0-0.05); Absolute Lymphocytes 0.8 10^3/uL (1.2-3.4); Absolute Monocytes 0.6 10^3/uL (0.1-0.6); Absolute Neutrophils 8.2 10^3/uL (1.4-6.5); Hematocrit 31.6 % (39.0-52.0); Hemoglobin 10.3 g/dL (13.0-18.0); Mean Corp Hgb Conc. 32.6 g/dL (33.0-37.0); Mean Corpuscular Hgb 25.9 pg (27.0-31.0); Mean Corpuscular Volume 79.6 fL (80.0-94.0); Mean Platelet Volume 10.3 fL (7.4-10.4); Nucleated Red Blood Cells % 0 % (-); Platelet Count 163 10^3/uL (130-400); Red Blood Cell Count 3.97 10^6/uL (4.70-6.10); Red Cell Dist. Width 14.6 % (11.5-14.5); White Blood Cell Count 9.6 10^3/uL (4.8-10.8)
[2024-07-24 07:24] LABS: Blood Urea Nitrogen 51 mg/dl (9-20); Calcium 8.4 mg/dl (8.4-10.2); Carbon Dioxide 21 mmol/L (22-30); Chloride 106 mmol/L (98-107); Estimated Creatinine Clearance 17 ml/min; Glucose 163 mg/dl (70-99); Potassium 4.1 mmol/L (3.5-5.1); Sodium 140 mmol/L (135-145); eGFR 22.25
[2024-07-24 07:38] VITALS: BP 151/69
[2024-07-24 08:05] LABS: Glucose - Point of Care 173 mg/dl (70-99)
[2024-07-24] MEDS: FLOMAX 0.4 MG PO (08:24)
[2024-07-24] MEDS: NOVOLOG FLEXPEN-LOW RESISTANCE 1 UNITS SC (08:25)
--- NOTE | 2024-07-24 11:09 | W.PN.HOSP.TC ---
Today's Communication/Plan
-
Continue with IV fluids
Repeat BMP in morning
Likely DC tomorrow if renal function improves
Assessment / Plan
Assessment / Plan
#Right obstructing ureterolithiasis
#Postrenal DEJAH on CKD III
-Presented with right flank pain, CT showing 5 mm distal right ureteral stone
-Urology performed ureteroscopy with stone removal and stent placement on 07/23
-Urinalysis and urine culture not consistent with infected stone, ceftriaxone has been discontinued
-Remains on tamsulosin and IV fluids, renal function now improving slowly
-Continue with supportive IVF, trend daily BMP to monitor I's and O's
#Benign essential hypertension
-No known history of hypertensive cardiovascular disease
-Home medications include amlodipine 2.5 mg daily
-BP remains well-controlled on home regimen
#T2DM
-A1c 9.2%, suspect his chronic kidney disease related to microvascular changes
-Home regimen includes insulin Levemir, insulin aspart, metformin twice daily
-On admission oral agent DC'd, started on basal insulin at half dose with ISS and Accu-Cheks
-Blood sugar was initially very high, seems improved as of today
#Senile Dementia
-Stable on Aricept.
#H/O Bladder Cancer
#H/O Prostate Cancer
-Followed by Dr. Cabral.
-Currently on Lupron q 6 months.
DVT Prophylaxis: SCDs
Diet: Carbohydrate controlled
Code Status: Full
Anticipated Discharge: Within 24 hours
Subjective/Interval History
-
Date of Service: July 24, 2024
Seen and examined at bedside. No acute events reported overnight.
He states he feels well today, feels like he is ready to leave the hospital.
He denies chest pain, shortness of breath, fevers or chills, nausea, vomiting, abdominal/flank pain, dysuria, hematuria, other abnormal bleeding or bruising, paresthesias or weakness.
Objective Data
-
Labs:
Laboratory Results
07/23/24 07/24/24
23:22 05:30
WBC 9.6
Hgb 10.3 L
Hct 31.6 L
Plt Count 163
Sodium 132 L D 140 D
Potassium 4.6 4.1
Chloride 101 106
Carbon Dioxide 18 L 21 L
BUN 54 H 51 H
Creatinine 3.0 H 2.8 H
Glucose 503 H* 163 H
Calcium 8.1 L 8.4
Vital Signs:
Vital Signs
Temp Pulse Resp BP Pulse Ox
97.9 F 69 18 151/69 99
07/24/24 07:38 07/24/24 07:38 07/24/24 07:38 07/24/24 07:38 07/24/24 07:38
I&O
07/23/24 07/24/24 07/25/24
06:59 06:59 06:59
Intake Total 2960 / 2960 580 / 580
Output Total 1425 / 1425
Balance 1535 / 1535 550 / 550
Review of Systems
-
History Source: Patient
All other systems: Reviewed and negative
Physical Exam
-
General: Well Nourished, No Apparent Distress and Comfortable
HEENT: Normocephalic, Atraumatic, Moist Mucous Membranes and Anicteric
Respiratory: Clear to Auscultation and Non Labored Respirations; Negative Wheezes, Rales, Rhonchi or Accessory Resp Muscle Use
Cardiac: Regular Rhythm and S1/S2; Negative Murmur, Rub or Gallop
GI: Soft, Nontender, Nondistended and Normal Bowel Sounds
Musculoskeletal: No Clubbing, No Cyanosis and No Edema
Skin: Warm and Dry; Negative Rash
Neuro: AO x 3, Nonfocal/Grossly Intact and Central Nerve's Intact
Data Reviewed
-
Labs: Labs Reviewed by me, Discussed with Patient and Discussed with Family
--- NOTE | 2024-07-24 11:33 | CM ---
Patient seen at bedside.
Continue with IVF
Per note potential d/c tomorrow if renal function improves.
Lives with daughter.
Patient has a referral in care port for [facility]. Patient & daughter Sarah agreeable as recommended by therapy.
Daughter to transport home.
PLAN: Discharge when stable to home with [facility].
Daughter will transport patient.
[2024-07-24 11:38] VITALS: BP 140/69
[2024-07-24 12:18] LABS: Glucose - Point of Care 341 mg/dl (70-99)
[2024-07-24] MEDS: ZOLOFT 150 MG PO (13:07)
[2024-07-24] MEDS: LIPITOR 20 MG PO (13:10)
[2024-07-24] MEDS: NORVASC 2.5 MG PO (13:11)
[2024-07-24] MEDS: ARICEPT 10 MG PO (13:11)
[2024-07-24] MEDS: LANTUS 0.3 UNITS SC (13:12)
[2024-07-24] MEDS: NOVOLOG FLEXPEN-LOW RESISTANCE 4 UNITS SC ×2 (13:13→18:21)
--- NOTE | 2024-07-24 14:15 | W.PN.URO.CBU ---
Today's Communication / Plan
-
- Trend DEJAH s/p resolution of obstruction
- Follow up in about 2 weeks for office cystoscopy and stent removal
Assessment / Plan
-
78M w R flank pain and DEJAH from R ureteral stone
s/p OR 07/23/24 for R ureteroscopy, laser lithotripsy, ureteral stent placement
no infection
improving renal fxn [slowly]
Diagnosis
-
Date of Service: July 24, 2024
-
Patient Diagnosis:
R ureteral stone, s/p right ureteroscopy, stone removal , stenting 07/23
DEJAH
Post Op Day: 1
Subjective
-
comfortable
Objective
-
Vital Signs
Temp Pulse Resp BP Pulse Ox
97.9 F 96 17 140/69 96
07/24/24 11:38 07/24/24 11:38 07/24/24 11:38 07/24/24 11:38 07/24/24 11:38
Intake and Output
07/23/24 07/24/24 07/25/24
06:59 06:59 06:59
Intake Total 2960 / 2960 580 / 580
Output Total 1425 / 1425 30 / 30
Balance 1535 / 1535 550 / 550
Intake:
Oral fluids 660 / 660 480 / 480
IV fluids (Total) 2300 / 2300 100 / 100
normosol 100 / 100
Output:
Urine, Voided 1425 / 1425 30 / 30
Other:
Number of approximated MODERATE 3
amounts of urine
Laboratory Results
07/24/24 05:30
07/24/24 05:30
Urine: no growth
Physical Exam
-
General - well developed, well nourished, no acute distress
Chest - clear bilaterally
Abdomen - soft, non-tender, positive bowel sounds, no CVAT, no incisional pain or distention
Genitalia - normal
Rectal - normal
Skin - warm & dry with no rash
Neuro - AOx3, no motor deficits
Extremities - no clubbing, no cyanosis, no edema
Incision - clean, dry
Dressing - clean, dry, intact
[2024-07-24 15:05] VITALS: BP 151/70
[2024-07-24 16:52] LABS: Glucose - Point of Care 306 mg/dl (70-99)
[2024-07-24] MEDS: STERILE WATER FOR INJECTION IV (21:08)
[2024-07-24 21:15] LABS: Glucose - Point of Care 210 mg/dl (70-99)
[2024-07-24 23:29] VITALS: BP 130/53
[2024-07-25] MEDS: NSS 1000 IV (03:29)
[2024-07-25 06:38] LABS: % Basophils 0.6 % (0-2); % Eosinophils 3.5 % (0-6); % Immature Granulocytes 0.3 % (0-0.5); % Lymphocytes 18.5 % (20.5-51.1); % Monocytes 5.9 % (1.7-9.3); % Neutrophils 71.2 % (42.2-75.2); Absolute Basophils 0.1 10^3/uL (0-0.2); Absolute Eosinophils 0.3 10^3/uL (0-0.7); Absolute Lymphocytes 1.6 10^3/uL (1.2-3.4); Absolute Monocytes 0.5 10^3/uL (0.1-0.6); Absolute Neutrophils 6.1 10^3/uL (1.4-6.5); Hematocrit 34.5 % (39.0-52.0); Hemoglobin 11.3 g/dL (13.0-18.0); Mean Corp Hgb Conc. 32.8 g/dL (33.0-37.0); Mean Corpuscular Hgb 25.9 pg (27.0-31.0); Mean Corpuscular Volume 79.1 fL (80.0-94.0); Mean Platelet Volume 9.9 fL (7.4-10.4); Nucleated Red Blood Cells % 0 % (-); Platelet Count 180 10^3/uL (130-400); Red Blood Cell Count 4.36 10^6/uL (4.70-6.10); Red Cell Dist. Width 14.9 % (11.5-14.5); White Blood Cell Count 8.6 10^3/uL (4.8-10.8)
[2024-07-25 07:00] VITALS: BP 168/76
[2024-07-25 07:17] LABS: Blood Urea Nitrogen 50 mg/dl (9-20); Calcium 8.6 mg/dl (8.4-10.2); Carbon Dioxide 20 mmol/L (22-30); Chloride 110 mmol/L (98-107); Estimated Creatinine Clearance 21 ml/min; Glucose 102 mg/dl (70-99); Potassium 4.1 mmol/L (3.5-5.1); Sodium 142 mmol/L (135-145); eGFR 29.72
[2024-07-25 08:57] LABS: Glucose - Point of Care 123 mg/dl (70-99)
[2024-07-25] MEDS: NOVOLOG FLEXPEN-LOW RESISTANCE SC (08:57)
[2024-07-25] MEDS: FLOMAX 0.4 MG PO (08:58)
[2024-07-25 10:06] VITALS: BP 115/65; BP 139/69; BP 153/72; PULSE 70; PULSE 79
--- NOTE | 2024-07-25 11:22 | W.PN.HOSP.TC ---
Today's Communication/Plan
-
Speak with urology about Flomax
Possible discharge later
Trend BMP while here
Assessment / Plan
Assessment / Plan
#Right obstructing ureterolithiasis
#Postrenal DEJAH on CKD III
-Presented with right flank pain, CT showing 5 mm distal right ureteral stone
-Urology performed ureteroscopy with stone removal and stent placement on 07/23
-Urinalysis and urine culture not consistent with infected stone, ceftriaxone has been discontinued
-Remains on tamsulosin and IV fluids, renal function now improving slowly
-Continue with supportive IVF, trend daily BMP to monitor I's and O's
-Will speak with urology about need for tamsulosin at DC as he has orthostasis
#Symptomatic orthostatic hypotension
-Likely due to his tamsulosin for recent ureterolithiasis and procedure
-Orthostatic vital signs were positive today
-Will speak with urology about necessity of Flomax at discharge
-If needed, will provide fall precautions/orthostatic education prior to DC
#Benign essential hypertension
-No known history of hypertensive cardiovascular disease
-Home medications include amlodipine 2.5 mg daily
-BP remains well-controlled on home regimen
#T2DM
-A1c 9.2%, suspect his chronic kidney disease related to microvascular changes
-Home regimen includes insulin Levemir, insulin aspart, metformin twice daily
-On admission oral agent DC'd, started on basal insulin at half dose with ISS and Accu-Cheks
-Blood sugar was initially very high, seems improved as of today
#Senile Dementia
-Stable on Aricept.
#H/O Bladder Cancer
#H/O Prostate Cancer
-Followed by Dr. Cabral.
-Currently on Lupron q 6 months.
DVT Prophylaxis: SCDs
Diet: Carbohydrate controlled
Code Status: Full
Anticipated Discharge: Today
Subjective/Interval History
-
Date of Service: July 25, 2024
Seen and examined at the bedside. No acute events reported overnight. As of this morning he did have some lightheadedness with positional change, orthostatic vital signs positive.
He otherwise remains afebrile, hemodynamically stable, and on room air.
Denies chest pain, shortness of breath, fevers or chills, nausea, vomiting, urinary pain or bleeding, abnormal bruising or bleeding, paresthesias or weakness.
Objective Data
-
Labs:
Laboratory Results
07/25/24
05:52
WBC 8.6
Hgb 11.3 L
Hct 34.5 L
Plt Count 180
Sodium 142
Potassium 4.1
Chloride 110 H
Carbon Dioxide 20 L
BUN 50 H
Creatinine 2.2 H
Glucose 102 H
Calcium 8.6
Vital Signs:
Vital Signs
Temp Pulse Resp BP Pulse Ox
98.2 F 61 18 168/76 97
07/25/24 07:00 07/25/24 07:00 07/25/24 07:00 07/25/24 07:00 07/25/24 07:00
I&O
07/24/24 07/25/24 07/26/24
06:59 06:59 06:59
Intake Total 580 / 580 800 / 800
Output Total 400 / 400
Balance 550 / 550 400 / 400
Review of Systems
-
History Source: Patient
All other systems: Reviewed and negative
Physical Exam
-
General: Well Nourished, No Apparent Distress and Comfortable
HEENT: Normocephalic, Atraumatic and Moist Mucous Membranes
Respiratory: Clear to Auscultation and Non Labored Respirations; Negative Wheezes, Rales or Rhonchi
Cardiac: Regular Rhythm and S1/S2; Negative Murmur, Rub or Gallop
GI: Soft, Nontender, Nondistended and Normal Bowel Sounds
Genito-urinary: No Costovertebral Tender
Musculoskeletal: No Clubbing, No Cyanosis and No Edema
Skin: Warm and Dry; Negative Rash
Neuro: AO x 3, Nonfocal/Grossly Intact and Central Nerve's Intact
Data Reviewed
-
Labs: Labs Reviewed by me and Discussed with Patient
[2024-07-25 12:31] LABS: Glucose - Point of Care 261 mg/dl (70-99)
[2024-07-25] MEDS: NOVOLOG FLEXPEN-LOW RESISTANCE 3 UNITS SC (13:21)
[2024-07-25] MEDS: ARICEPT 10 MG PO (13:21)
[2024-07-25] MEDS: LIPITOR 20 MG PO (13:22)
[2024-07-25] MEDS: LANTUS 0.3 UNITS SC (13:22)
[2024-07-25] MEDS: NORVASC 2.5 MG PO (13:22)
[2024-07-25] MEDS: ZOLOFT 150 MG PO (13:23)
--- NOTE | 2024-07-25 13:37 | W.PN.UPDATE ---
Update Note
Progress Note Update
Orthostatic vital signs were this morning were positive, associated with mild dizziness/lightheadedness, no presyncope or fall reported.
Highly likely that tamsulosin, which is a new medication, is contributing to this via elevation of alpha-1 receptors and vasodilation. I spoke with his daughter and him at the bedside. I educated them about how tamsulosin commonly leads to these
orthostatic changes, though it is also beneficial at reducing ureter spasms and controlling pain following ureteral stent placement.
His daughter mentions that the patient lives with her and her , and a finished basement. He only uses the stairs once per day to go upstairs with the family, under supervised circumstances. 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
and near where the patient spends most of this time. He has a high level of support. His daughter feels comfortable taking him home despite his orthostatic symptoms today.
I told them that they should use caution when he changes positions. Should go slowly from supine -> seated -> standing, and monitor for symptoms along the way. If symptoms present then give time for improvement or return to the supine position.
--- NOTE | 2024-07-25 13:47 | W.DCSUMMARY ---
Addendum entered and electronically signed by Yonatan Strange DO 07/25/24 16:00:
Spoke with urology who recommended to hold tamsulosin 2/2 orthostasis. I have spoken with the patient's daughter, told her to discontinue tamsulosin
Original Note:
Discharge Summary
Discharge Data
Date of Admission: 07/22/24
Date of Discharge: 07/25/24
-
Pending Results: No
Hospital Course
78-year-old male with dementia, CKD stage III, type 2 diabetes mellitus, hypertension, history of bladder and prostate cancer s/p TURBT and prostatectomy respectively that presented to the emergency department with right flank pain over 2 to [address] scan showed a 5 mm distal right ureteral stone. Was started on IV fluids, analgesia and tamsulosin. Urology performed ureteroscopy with stent placement. Was initially treated IV antibiotics though urinalysis and urine culture both
negative so IV antibiotics were discontinued. Was treated supportively with IV fluids for post renal DEJAH with improvement of his creatinine towards baseline.
Developed orthostatic hypotension in the context of new tamsulosin. Had discussion with his daughter and the patient at the bedside. Has a high level of social support at home with the patient's daughter and son present throughout the day.
Additionally he has a cane and walker. Provided orthostatic hypotension precautions, advised close supervision when changing positions. As tamsulosin is transient medicine pending his ureteral stent removal, tried to avoid polypharmacy/additional
side effects by adding midodrine. Optimistic that tamsulosin can be discontinued following stent removal.
Discharge Plan
-
Patient Disposition: Home (Routine Discharge)
Discharge Diagnosis/Procedures: Obstructing ureterolithiasis, right sided
Post-renal DEJAH
Orthostatic hypotension from tamsulosin
Condition: Good
Diet: No restrictions
Activity: As tolerated
Driving Restrictions: No driving for 24 hours
Bathing Restrictions: OK to Shower
Blood Work: BMP in 5 days to recheck kidney function
Others Tests: None
Activity Restrictions/Additional Instructions:
Schedule follow-up appointment with primary care doctor and neurologist after discharge.
Orthostatic precautions: Use caution when changing position from supine, seated, to standing as blood pressure may drop and cause lightheadedness/passing out. He should use his walker for support when standing up while on tamsulosin. He should be
supervised when using the stairs.
Instructions: Orthostatic hypotension
Referrals:
Dillan Santillan DO [Family Provider] -
Stewart Cabral MD [Active] - in one to two weeks
Additional Discharge Medication Instructions: Take tamsulosin 0.4 mg daily
Take phenazopyridine 200 mg as needed, up to 3 times daily
Prescriptions:
New
tamsulosin 0.4 mg Capsule
0.4 mg PO DAILY 30 Days Qty: 30 0RF
phenazopyridine 200 mg Tablet
200 mg PO TIDPRN PRN (Reason: dysuria) 30 Days Qty: 60 0RF
Continued
donepezil 10 MG tablet
10 mg PO DAILY@1200
simvastatin 40 MG tablet
40 mg PO DAILY@1200
Levemir FlexTouch U100 Insulin 300 UNIT/3 ML insulin pen
40 unit SC DAILY@1200
sertraline 100 MG tablet
150 mg PO DAILY@1200
insulin aspart U-100 [Novolog FlexPen U-100 Insulin] 300 UNITS/3 ML insulin pen
0 - 7 units SC DAILY@1200
metformin 500 mg tablet
1,000 mg PO BID
amlodipine 5 mg tablet
2.5 mg PO DAILY@1200
Lupron Depot (6 Month)
45 mg IM Q6M
potassium citrate
2 tab PO DAILY
Discharge Orders:
Discharge Patient (As Directed); Ordered 07/25/24
Ordered By: Yonatan Strange
Discharge Date and Time
Print Language: MALTESE
--- NOTE | 2024-07-25 14:38 | CM ---
CM reviewed chart, patient for discharge today. Patient seen bedside, IMM reviewed, signed, placed in chart. Patient reports his daughter will provide transportation home. Update to [facility] on discharge status. CM will continue to follow for all
discharge planning needs.
Plan; home with [facility], family to provide transport.
[2024-07-25 15:43] VITALS: BP 134/64
--- NOTE | 2024-07-25 15:58 | W.PN.UPDATE ---
Update Note
Progress Note Update
Spoke with urology, recommended holding Tamsulosin for now. I spoke with the patients daughter and told her NOT to give tamsulosin. DC summary and med rec to be adjusted
== END 2024-07-25 15:52 | disposition home health service (06) | DRG 660 ==
LOC: 4 WEST ACU 06:07
PROVIDERS: Nurse Practitioner Gerontology; Student in an Organized Health Care Education/Training Program; Urology; ADMITTING PHYSICIAN Hospitalist; ATTENDING PHYSICIAN Internal Medicine; CONSULT PHYSICIAN Specialist; EMERGENCY PHYSICIAN Emergency Medicine; FAMILY PHYSICIAN Internal Medicine
PROC: 0T768DZ Dilation of Right Ureter with Intraluminal Device, Via Natural or Artificial Opening Endoscopic (ICD-10-PCS; 2024-07-23)
PROC: 0TC68ZZ Extirpation of Matter from Right Ureter, Via Natural or Artificial Opening Endoscopic (ICD-10-PCS; 2024-07-23)
DX: N20.1 Calculus of ureter (principal); N17.9 Acute kidney failure, unspecified; E11.22 Type 2 diabetes mellitus with diabetic chronic kidney disease; N18.30 Chronic kidney disease, stage 3 unspecified; I12.9 Hypertensive chronic kidney disease with stage 1 through stage 4 chronic kidney disease, or unspecified chronic kidney disease; E11.40 Type 2 diabetes mellitus with diabetic neuropathy, unspecified; Z85.51 Personal history of malignant neoplasm of bladder; C67.9 Malignant neoplasm of bladder, unspecified; C61 Malignant neoplasm of prostate; F03.A0 Unspecified dementia, mild, without behavioral disturbance, psychotic disturbance, mood disturbance, and anxiety; I95.1 Orthostatic hypotension
CPT/HCPCS: 74018; 74176; 76000; 80048; 80053; 81003; 81015; 82365; 82947; 82962; 83036; 83690; 85025; 85027; 87086; 96361; 96374; 96375; 97116; 97162; 97166; 97530; 97535; 99285; A4300; C1769; C2617

== ENCOUNTER → 2024-07-31 18:48 | Outpatient (REF) | payer MEDICARE, OTHER, SELFPAY ==
[2024-07-31 19:30] LABS: Blood Urea Nitrogen 41 mg/dl (9-20); Calcium 9.2 mg/dl (8.4-10.2); Carbon Dioxide 17 mmol/L (22-30); Chloride 110 mmol/L (98-107); Glucose 148 mg/dl (70-99); Potassium 4.3 mmol/L (3.5-5.1); Sodium 142 mmol/L (135-145); eGFR 33.32
== END ==
LOC: OLAB 18:48
PROVIDERS: ATTENDING PHYSICIAN Family Medicine
DX: N17.9 Acute kidney failure, unspecified (principal)
CPT/HCPCS: 80048

== ENCOUNTER → 2024-12-12 16:25 | Outpatient (REF) | payer MEDICARE, OTHER, SELFPAY ==
[2024-12-12 16:44] LABS: % Basophils 0.4 % (0-2); % Eosinophils 1.4 % (0-6); % Immature Granulocytes 0.4 % (0-0.5); % Lymphocytes 18.4 % (20.5-51.1); % Monocytes 5.5 % (1.7-9.3); % Neutrophils 73.9 % (42.2-75.2); Absolute Eosinophils 0.1 10^3/uL (0-0.7); Absolute Lymphocytes 1.4 10^3/uL (1.2-3.4); Absolute Monocytes 0.4 10^3/uL (0.1-0.6); Absolute Neutrophils 5.8 10^3/uL (1.4-6.5); Hematocrit 35.3 % (39.0-52.0); Hemoglobin 10.5 g/dL (13.0-18.0); Mean Corp Hgb Conc. 29.7 g/dL (33.0-37.0); Mean Corpuscular Hgb 24.2 pg (27.0-31.0); Mean Corpuscular Volume 81.3 fL (80.0-94.0); Mean Platelet Volume 9.9 fL (7.4-10.4); Nucleated Red Blood Cells % 0 % (-); Platelet Count 250 10^3/uL (130-400); Red Blood Cell Count 4.34 10^6/uL (4.70-6.10); Red Cell Dist. Width 15.7 % (11.5-14.5); White Blood Cell Count 7.8 10^3/uL (4.8-10.8)
[2024-12-12 16:55] LABS: ALT (SGPT) 13 U/L (0-50); AST (SGOT) 22 U/L (17-59); Albumin 3.6 g/dl (3.5-5.0); Alkaline Phosphatase 98 U/L (38-126); Blood Urea Nitrogen 28 mg/dl (9-20); Calcium 8.6 mg/dl (8.4-10.2); Carbon Dioxide 30 mmol/L (22-30); Chloride 102 mmol/L (98-107); Glucose 56 mg/dl (70-99); HDL Cholesterol 37 mg/dl; LDL Cholesterol, Calculated 68 mg/dl; Potassium 4.7 mmol/L (3.5-5.1); Sodium 138 mmol/L (135-145); Total Bilirubin 0.4 mg/dl (0.2-1.3); Total Cholesterol 136 mg/dl (50-199); Total Protein 6.3 g/dl (6.3-8.2); Triglyceride 157 mg/dl (10-149); Very Low Density Lipoprotein 31 mg/dl (0-30); eGFR 31.23
[2024-12-12 17:13] LABS: Microalbumin, Random Urine 1.7 mg/dl (0.6-1.7); Microalbumin/creatinine Ratio 23.8 mg/g
[2024-12-12 17:26] LABS: TSH 0.85 uIU/ml (0.47-4.68)
[2024-12-13 10:39] LABS: Glycohemoglobin (HgbA1c) 8.3 % (4.0-5.6)
== END ==
LOC: OLAB 16:25
PROVIDERS: ATTENDING PHYSICIAN Internal Medicine
DX: I12.9 Hypertensive chronic kidney disease with stage 1 through stage 4 chronic kidney disease, or unspecified chronic kidney disease (principal); E11.65 Type 2 diabetes mellitus with hyperglycemia; E78.2 Mixed hyperlipidemia
CPT/HCPCS: 36415; 80053; 80061; 82043; 82565; 82570; 83036; 84439; 84443; 85025

== ENCOUNTER → 2025-02-11 12:56 | Outpatient (REF) | payer MEDICARE, OTHER, SELFPAY | LOC: RAD 12:56 | PROVIDERS: ATTENDING PHYSICIAN Urology; FAMILY PHYSICIAN Internal Medicine | DX: N20.0 Calculus of kidney (principal) | CPT/HCPCS: 76775 ==